=== PATIENT | male | born 1995 | race Asian ===

== ENCOUNTER 2021-04-04 20:55 | Emergency (ER) | payer BC ==
[~2021-04-04] VITALS: Ht 177.8 cm; Wt 63.5 kg
[2021-04-04 21:11] VITALS: BP_SYST 117
--- NOTE | 2021-04-04 21:11 | NUR ---
Patient triaged and placed in waiting room. VSS and patient appears in no acute distress at this time. Accompanied by self , awaiting available bed, and MD notified of need for MSE.
--- NOTE | 2021-04-04 22:37 | NUR ---
Susan orosco in [facility] - 04/04/21 at 2311 by [email or web address] Pt ALYSSABS
--- NOTE | 2021-04-04 22:40 | NUR ---
Seen and examined by Dr. Montes
[2021-04-04] MEDS ORDERED: NACL 0.9% 1,000 ML IV ONE (23:00)
--- NOTE | 2021-04-05 00:01 | NUR ---
Came in ER ambulatory from home this 25 year old, male, AAOX4, breathing spontaneously at room air, not in distress noted. With chief complaints of Anxiety, no known medical/ no surgical history. vital signs stable
--- NOTE | 2021-04-05 00:04 | NUR ---
# 20 gauge angiocath placed to right ac. Use of asceptic technique. Opsite placed over site. Blood return noted. Blood for lab drawn from site. Flushed with 10 cc of normal saline. No evidence of infiltration noted. Patient tolerated well.
[2021-04-05 00:23] LABS: BASOPHILS % (AUTO) 0.1 % (0.0-2.0); EOSINOPHILS % (AUTO) 0.1 % (0.0-4.0); HEMATOCRIT 49.5 % (36-54); HEMOGLOBIN 17.4 g/dL (14.0-18.0); LYMPHOCYTES # (AUTO) 0.7 K/uL (1.0-5.5); LYMPHOCYTES % (AUTO) 6.7 % (20.5-51.5); MEAN CORPUSCULAR HEMOGLOBIN 32 pg (27-31); MEAN CORPUSCULAR HGB CONC 35 % (32-36); MEAN CORPUSCULAR VOLUME 90 fL (79.0-98.0); MONOCYTES # (AUTO) 0.8 K/uL (0.0-1.0); MONOCYTES % (AUTO) 8.3 % (1.7-9.3); NEUTROPHILS # (AUTO) 8.5 K/uL (1.8-7.7); NEUTROPHILS % (AUTO) 84.8 % (40.0-70.0); PLATELET COUNT (AUTO) 222 K/uL (130-430); RED CELL DISTRIBUTION WIDTH 12.4 % (9.0-15.0)
[2021-04-05 00:33] LABS: CALCIUM 9.2 mg/dL (8.4-11.0); CREATININE 1.02 mg/dL (0.55-1.30); POTASSIUM 3.5 mmol/L (3.5-5.1)
[2021-04-05 00:50] LABS: ALBUMIN 4.2 g/dL (3.4-4.8); FREE T4 (FREE THYROXINE) 0.9 ng/dl (0.8-1.5); THYROID STIMULATING HORMONE 0.69 uIu/mL (0.36-3.74); TOTAL BILIRUBIN 0.9 mg/dL (0.0-1.0)
--- NOTE | 2021-04-05 01:20 | NUR ---
Patient given written and verbal discharge instructions and verbalizes understanding. ER MD discussed with patient the results and treatment provided. Patient in stable condition. ID arm band removed. IV catheter removed intact and dressing applied, no active bleeding. no rx given. Patient educated on pain management and to follow up with PMD. Pain Scale 0/10 Opportunity for questions provided and answered.
[2021-04-05 01:21] VITALS: BP_SYST 116
== END 2021-04-05 01:21 | disposition home or self-care (01) ==
LOC: SED 20:55
DX: R00.0 Tachycardia, unspecified (principal); R00.2 Palpitations
CPT/HCPCS: 36415; 71045; 80053; 84439; 84443; 85025; 85379; 93005; 96360; 99285; J7030